=== PATIENT | male | born 1930 | race Caucasian/White ===

== ENCOUNTER 2019-10-13 05:31 | Inpatient (IN) | payer MEDICARE, OTHER ==
[2019-10-06 15:06] LABS: EOSINOPHILS # (AUTO) 0.1 X10'3 (0-0.9); LYMPHOCYTES # (AUTO) 0.7 X10'3 (1.1-4.8); MONOCYTES # (AUTO) 0.3 X10'3 (0-0.9)
[2019-10-06 15:07] LABS: BASOPHILS % (AUTO) 0.4 % (0-1); EOSINOPHILS % (AUTO) 2.6 % (0-6); LYMPHOCYTES % (AUTO) 17.4 % (21-51); MEAN CORPUSCULAR HEMOGLOBIN 28.4 PG (27.0-31.0); MEAN CORPUSCULAR HGB CONC 32.4 g/dL (33.0-36.5); MEAN CORPUSCULAR VOLUME 87.8 FL (78-98); MEAN PLATELET VOLUME 7.2 FL (7.4-10.4); MONOCYTES % (AUTO) 7.6 % (2-12); PRE OP HEMATOCRIT 33.2 % (42.0-52.0); PRE OP PLATELET COUNT 269 X10'3 (140-440); RED BLOOD COUNT 3.78 X10'6 (4.70-6.10); RED CELL DISTRIBUTION WIDTH 16.9 % (11.5-14.5)
[2019-10-06 15:10] LABS: PRE OP HEMOGLOBIN 10.7 g/dL (14.0-17.9)
[2019-10-06 15:17] LABS: ALBUMIN 3.6 G/DL (3.4-5.0); ALBUMIN/GLOBULIN RATIO 0.9 (1.1-1.5); ALKALINE PHOSPHATASE 91 IU/L (46-116); BLOOD UREA NITROGEN 32 MG/DL (7-18); BUN/CREATININE RATIO 13.1 (5.4-32.0); CALCIUM 8.8 MG/DL (8.5-10.1); CHLORIDE 106 MMOL/L (99-107); CREATININE 2.45 MG/DL (0.60-1.10); PRE OP ALT 17 U/L (30-65); PRE OP ANION GAP 7 (8-16); PRE OP AST 20 U/L (10-37); PRE OP BILIRUB, TOTAL 0.6 MG/DL (0.0-1.0); PRE OP GLUCOSE 107 MG/DL (70-104); PRE OP INR 1.1 INR; PRE OP POTASSIUM 3.7 MMOL/L (3.4-5.1); PRE OP SODIUM 141 MMOL/L (135-145); TOTAL CARBON DIOXIDE 28.2 MMOL/L (24-32); TOTAL PROTEIN 7.4 G/DL (6.4-8.2); eGFR 25 ML/MIN
[2019-10-13] VITALS (21 sets, daily range): BP systolic 116–136; BP diastolic 49–75
[~2019-10-13] VITALS: Ht 177.8 cm; Wt 80.0 kg
[~2019-10-13 05:31] MED LIST: AMLO2.5T2 PO; APIX2.5T PO; DOCUMENT DATE & TIME OF BETA-BLOCKER PO ONE; FURO-150 PO; HYDR-4069 PO; METO50TA17 PO; OLME5TAB3 PO; OMEP20TA5 PO; ceFOXitin sod/dextrose 2g/50ml 50 ML IV ONE; famotidine 20mg tablet PO ONE; ringers solution, lacted 1,000 ML IV SCH
[2019-10-13] MEDS ORDERED: LIDOcaine 1% 30ml preserv. free vial ONE (06:38)
[2019-10-13] MEDS ORDERED: BUPIVAcaine/PF 2.5 mg/ml (0.25%) 30ml vial ONE (06:38)
[2019-10-13] MEDS ORDERED: LIDOcaine 1% (10mg/ml) 2ml vial ONE (07:09)
[2019-10-13] MEDS ORDERED: fentaNYL /PF 50mcg/ml 5ml ampule ONE (07:17)
[2019-10-13] MEDS ORDERED: sevoflurane 250ml liquid IH ONE (07:32)
[2019-10-13] MEDS ORDERED: rocuronium 10mg/ml inj IV ONE (09:48)
[2019-10-13] MEDS ORDERED: ondansetron/PF 4mg/2ml inj ONE (09:48)
[2019-10-13] MEDS ORDERED: pancuronium br 1mg/ml inj IV ONE (09:48)
[2019-10-13] MEDS ORDERED: dexamethasone sod phosphate 4mg/ml inj. ONE (09:48)
[2019-10-13] MEDS ORDERED: furosemide 40mg/4ml inj ONE (09:48)
[2019-10-13] MEDS ORDERED: ePHEDrine 50MG/ML INJ. ONE (09:48)
[2019-10-13] MEDS ORDERED: propofol inj 20 ML IV ONE (09:48)
[2019-10-13] MEDS ORDERED: neostigmine methylsulfate 1 MG/ML 10ml vial ONE (09:48)
[2019-10-13] MEDS ORDERED: LIDOcaine 2% (20mg/ml) 5ml vial ONE (09:48)
[2019-10-13] MEDS ORDERED: glycopyrrolate 0.2mg/ml inj ONE ×2 (09:48→10:13)
--- NOTE | 2019-10-13 10:47 | NUR ---
Received from OR via surgical bed, accompanied by Anesthesiologist Shira and report given by Anesthesiolgist. All VS stable, mask to 10L and sats 99%. Art line to right wrist no hematoma present, zeroed and waveform acceptable. Left hand has 20G SL, 18G to left forearm present with LR at 100cc/hr. Pt opens eyes in response to questions but no verbal response, moves all extremeties. Abdomen lap sites covered CDI and small island dressing covering 3-4inch incision per RN and MD. ZAINA present to suction with minimal serosang drainage present. Murray catheter draining yellow urine and SCDs on.
[2019-10-13] MEDS ORDERED: ringers solution, lacted 1,000 ML IV SCH (10:56)
[2019-10-13] MEDS ORDERED: morphine 2 MG/ML inj. syringe IV PRN (11:00)
[2019-10-13] MEDS ORDERED: HYDROmorphone inj. 0.5 MG/0.5 ML DISP.SYRIN IV PRN ×2 (11:00)
[2019-10-13] MEDS ORDERED: ondansetron/PF 4mg/2ml inj IV PRN ×2 (11:00)
--- NOTE | 2019-10-13 11:05 | NUR ---
Blood sugar checked per MD request, 127, reported.
--- NOTE | 2019-10-13 11:30 | NUR ---
ASSUMED CARE OF PT FROM RN, RADIAL ART LINE D/CD, CANNULA INTACT. Addendum: 10/13/19 at 1247 by Lourdes Whitehead RN Amended: Links added.
--- NOTE | 2019-10-13 12:37 | NUR ---
PT REMAINS DROWSY BUT ANSWERS QUESTIONS APPROPRIATELY, DENIES PAIN,Report called to receiving nurse. Transferred via BED, 1 BAG OF PERSONAL Belongings SENT W/PT TO ROOM 347A, RECEIVING RN AT BEDSIDE TO RECEIVE PT, BLL, CALL LIGHT GIVEN, SIDE RAILS UP X 2. Special Issues communicated to receiving nurse. YES. Addendum: 10/13/19 at 1243 by Lourdes Whitehead RN Amended: Links added.
--- NOTE | 2019-10-13 12:52 | NUR ---
1158 Report from car seat upholsterer Jane. [id number] Pt recived in room on a bed. Pt sleeping. pt assessed. abdominal dressings CDI, PIV patent, o2 at 2l.
[2019-10-13] MEDS: Potassium Cl inj 20 MEQ in ringers solution, lacted 1,000 ML IV SCH (14:00)
[2019-10-13] MEDS: acetaminophen 1,000mg/100ml IV 100 ML IV SCH ×2 (14:57→20:08)
[2019-10-13] MEDS: HYDROmorphone inj. 0.5 MG/0.5 ML DISP.SYRIN IV PRN (15:52)
[2019-10-13] MEDS: ceFAZolin inj. 1,000 MG in dextrose 5%-water 50ml 50 ML IV SCH (16:14)
[2019-10-13] MEDS: hyDRALAzine 10mg tablet PO SCH (16:14)
--- NOTE | 2019-10-13 18:21 | NUR ---
Problems reprioritized. Patient report given, questions answered & plan of care reviewed with Prudence RN.
--- NOTE | 2019-10-13 18:21 | NUR ---
Problems reprioritized. Patient report given, questions answered & plan of care reviewed with Prudence RN.
--- NOTE | 2019-10-13 18:38 | NUR ---
Patient in room [place] 347. I have received report from JAMES LANGFORD and had the opportunity to ask questions and assume patient care. Patient is awake in bed and denies having pain.
[2019-10-13] MEDS: metoprolol tartrate 25mg tablet PO SCH (20:12)
[2019-10-13] MEDS: amLODIPine 5mg tablet PO SCH (22:11)
[2019-10-14] MEDS: Potassium Cl inj 20 MEQ in ringers solution, lacted 1,000 ML IV SCH ×2 (00:26→04:50)
[2019-10-14] MEDS: hyDRALAzine 10mg tablet PO SCH ×4 (00:35→23:39)
[2019-10-14 00:45] VITALS: BP 127/60
[2019-10-14] MEDS: ceFAZolin inj. 1,000 MG in dextrose 5%-water 50ml 50 ML IV SCH ×2 (01:02→08:12)
[2019-10-14] MEDS: acetaminophen 1,000mg/100ml IV 100 ML IV SCH ×2 (02:44→07:33)
--- NOTE | 2019-10-14 03:01 | NUR ---
Patient received acetaminophen IV twice on exercise scientist in the total of 2000mg. Pharmacy consulted on the warning that was coming on the patient's screen that he has exceeded 8000mg in 24 hours. According to the dosage on EMAR, patient has only receive 3000mg since admission.
[2019-10-14 04:32] VITALS: BP 123/56
[2019-10-14 05:48] LABS: BASOPHILS % (AUTO) 0 % (0-1); EOSINOPHILS % (AUTO) 0 % (0-6); HEMATOCRIT 30.2 % (42.0-52.0); HEMOGLOBIN 10.2 g/dl (14.0-17.9); LYMPHOCYTES # (AUTO) 0.6 X10'3 (1.1-4.8); LYMPHOCYTES % (AUTO) 9.3 % (21-51); MEAN CORPUSCULAR HEMOGLOBIN 29.8 PG (27.0-31.0); MEAN CORPUSCULAR HGB CONC 33.6 g/dL (33.0-36.5); MEAN CORPUSCULAR VOLUME 88.6 FL (78-98); MEAN PLATELET VOLUME 7.6 FL (7.4-10.4); MONOCYTES # (AUTO) 0.5 X10'3 (0-0.9); MONOCYTES % (AUTO) 7.6 % (2-12); NEUTROPHILS # (AUTO) 5.4 X10'3 (1.8-7.7); NEUTROPHILS % (AUTO) 83.1 % (42-75); PLATELET COUNT 197 X10'3 (140-440); RED BLOOD COUNT 3.41 X10'6 (4.70-6.10); RED CELL DISTRIBUTION WIDTH 16.7 % (11.5-14.5); WHITE BLOOD COUNT 6.5 X10'3 (4.5-11.0)
[2019-10-14 05:53] LABS: ALBUMIN 2.5 G/DL (3.4-5.0); ANION GAP 4 (8-16); BLOOD UREA NITROGEN 30 MG/DL (7-18); BUN/CREATININE RATIO 12.4 (5.4-32.0); CALCIUM 8.4 MG/DL (8.5-10.1); CHLORIDE 109 MMOL/L (99-107); CREATININE 2.42 MG/DL (0.60-1.10); GLUCOSE 109 MG/DL (70-104); POTASSIUM 5.3 MMOL/L (3.5-5.1); SODIUM 141 MMOL/L (135-145); TOTAL CARBON DIOXIDE 27.6 MMOL/L (24-32); eGFR 25 ML/MIN
--- NOTE | 2019-10-14 06:24 | NUR ---
Problems reprioritized. Patient report given, questions answered & plan of care reviewed with MYRA LANGFORD.
--- NOTE | 2019-10-14 06:38 | NUR ---
Patient in room [place] 347. I have received report from ANASTASIYA STAPLETON and had the opportunity to ask questions and assume patient care.
[2019-10-14 07:04] VITALS: BP 126/78
[2019-10-14] MEDS: furosemide 20MG tablet PO SCH (07:25)
[2019-10-14] MEDS: pantoprazole 40mg Tablet.DR PO SCH (07:25)
[2019-10-14] MEDS: metoprolol tartrate 25mg tablet PO SCH ×2 (07:25→19:23)
[2019-10-14] MEDS: losartan 50mg tablet PO SCH (07:25)
[2019-10-14] MEDS ORDERED: normal saline 1000ml 1,000 ML IV SCH (08:10)
--- NOTE | 2019-10-14 08:23 | NUR ---
DR SALDAÑA IN TO SEE PATIENT.
[2019-10-14] MEDS ORDERED: diatrozoate meglu/diatrozoate sod (37% iodine) 120ML oral solution ONE (09:00)
--- NOTE | 2019-10-14 09:30 | NUR ---
PATIENT DOWN TO RADIOLOGY.
[2019-10-14] MEDS: HYDROmorphone inj. 0.5 MG/0.5 ML DISP.SYRIN IV PRN ×2 (10:04→23:43)
--- NOTE | 2019-10-14 10:08 | NUR ---
PATIENT BACK TO ROOM 347A. C/O 9/ PAIN TO LEFT LATERAL ABD. PAIN MED ADMINISTERED ORDERED. WILL CONTINUE TO MONITOR.
[2019-10-14 11:00] VITALS: BP 118/57
--- NOTE | 2019-10-14 17:45 | NUR ---
Bladder scanned patient per primary RN request. Bladder scan showed 90 mL. Set patient up for dinner, reported bladder scan info to Rn Shantel.
[2019-10-14 18:00] VITALS: BP 143/67
--- NOTE | 2019-10-14 18:29 | NUR ---
Problems reprioritized. Patient report given, questions answered & plan of care reviewed with ANASTASIYA Valdes.
--- NOTE | 2019-10-14 18:31 | NUR ---
Unable to measure patient's void after sanchez catheter removal as patient reports he had a BM and voided at same time. Bladder scan for post void residual and bladder scan shows 90ml. Patient denies any pain or discomfort in bladder.
--- NOTE | 2019-10-14 18:32 | NUR ---
Patient in room [place] 347. I have received report from ANASTASIYA Funes and had the opportunity to ask questions and assume patient care.
[2019-10-14] MEDS: amLODIPine 5mg tablet PO SCH (20:38)
--- NOTE | 2019-10-14 20:41 | NUR ---
Automatic blood pressure performed, 146/65, right arm. Upon medication administration for Amlodipine 10 mg, 1 out of 2 tablets dropped on to the floor. Informed pt that I would get another tablet. Pt refused. Will continue to monitor patient blood pressure
[2019-10-15] VITALS: BP 155/73
[2019-10-15 04:57] LABS: ALBUMIN 2.7 G/DL (3.4-5.0); ANION GAP 5 (8-16); BASOPHILS % (AUTO) 0.1 % (0-1); BLOOD UREA NITROGEN 28 MG/DL (7-18); BUN/CREATININE RATIO 13.4 (5.4-32.0); CALCIUM 8.1 MG/DL (8.5-10.1); CHLORIDE 108 MMOL/L (99-107); CREATININE 2.09 MG/DL (0.60-1.10); EOSINOPHILS % (AUTO) 0.3 % (0-6); GLUCOSE 94 MG/DL (70-104); HEMOGLOBIN 10.7 g/dl (14.0-17.9); LYMPHOCYTES # (AUTO) 0.8 X10'3 (1.1-4.8); MEAN CORPUSCULAR HEMOGLOBIN 28.5 PG (27.0-31.0); MEAN CORPUSCULAR HGB CONC 32.4 g/dL (33.0-36.5); MEAN CORPUSCULAR VOLUME 87.8 FL (78-98); MEAN PLATELET VOLUME 7.4 FL (7.4-10.4); MONOCYTES # (AUTO) 0.4 X10'3 (0-0.9); NEUTROPHILS # (AUTO) 5.1 X10'3 (1.8-7.7); NEUTROPHILS % (AUTO) 81.6 % (42-75); PLATELET COUNT 214 X10'3 (140-440); POTASSIUM 4.2 MMOL/L (3.5-5.1); RED BLOOD COUNT 3.75 X10'6 (4.70-6.10); SODIUM 141 MMOL/L (135-145); TOTAL CARBON DIOXIDE 27.7 MMOL/L (24-32); WHITE BLOOD COUNT 6.2 X10'3 (4.5-11.0); eGFR 30 ML/MIN
--- NOTE | 2019-10-15 06:28 | NUR ---
Problems reprioritized. Patient report given, questions answered & plan of care reviewed with ANASTASIYA Cortes.
--- NOTE | 2019-10-15 06:35 | NUR ---
Patient in room [place] 347. I have received report from Keisha LANGFORD and had the opportunity to ask questions and assume patient care.
[2019-10-15 08:00] VITALS: BP 148/75
[2019-10-15] MEDS: hyDRALAzine 10mg tablet PO SCH ×2 (08:00→16:52)
[2019-10-15] MEDS: furosemide 20MG tablet PO SCH (08:14)
[2019-10-15] MEDS: losartan 50mg tablet PO SCH (08:15)
[2019-10-15] MEDS: pantoprazole 40mg Tablet.DR PO SCH (08:15)
[2019-10-15] MEDS: metoprolol tartrate 25mg tablet PO SCH ×2 (08:15→20:24)
--- NOTE | 2019-10-15 10:47 | NUR ---
Patient up with walker and one person standby, walked approx. 700ft, patient seemed stable on his feet, no difficulty.
--- NOTE | 2019-10-15 10:49 | NUR ---
Patient states that he had a small bowel movement this morning around 1030. Patient states it was loose and green/brown in color.
[2019-10-15 11:00] VITALS: BP 138/73
--- NOTE | 2019-10-15 11:30 | NUR ---
Dr Baron rounded for Dr Ayoub, Dr Snider ordered DC ZAINA drain. Dr aware of the amount of fluids draining from ZAINA. Pt has 60 ml serosanguineous fluids from [id number]. last night 50ml and yesterday day shift reported 210mls. Dr Baron stated that the amount did not matter and it needed to be DC. also ordered MOM BID and dressing change PRN. Pt will be DC tomorrow.
[2019-10-15 18:15] VITALS: BP 161/75
--- NOTE | 2019-10-15 18:28 | NUR ---
Problems reprioritized. Patient report given, questions answered & plan of care reviewed with Keisha LANGFORD.
--- NOTE | 2019-10-15 18:29 | NUR ---
Patient in room [place] 347. I have received report from ANASTASIYA Cortes and had the opportunity to ask questions and assume patient care.
[2019-10-15] MEDS: heparin, porcine 5000 units/ml vial SQ SCH (20:23)
[2019-10-15] MEDS: magnesium hydroxide 30ml (MOM) UD suspension PO SCH (20:24)
[2019-10-15] MEDS: amLODIPine 5mg tablet PO SCH (21:53)
[2019-10-16 00:29] VITALS: BP 143/74
[2019-10-16] MEDS: hyDRALAzine 10mg tablet PO SCH ×2 (00:43→08:40)
[2019-10-16 05:13] LABS: BASOPHILS % (AUTO) 0.3 % (0-1); EOSINOPHILS # (AUTO) 0.1 X10'3 (0-0.9); EOSINOPHILS % (AUTO) 1.3 % (0-6); HEMOGLOBIN 10.9 g/dl (14.0-17.9); LYMPHOCYTES # (AUTO) 1.2 X10'3 (1.1-4.8); LYMPHOCYTES % (AUTO) 22.1 % (21-51); MEAN CORPUSCULAR HEMOGLOBIN 29.2 PG (27.0-31.0); MEAN CORPUSCULAR VOLUME 88.5 FL (78-98); MEAN PLATELET VOLUME 7.7 FL (7.4-10.4); MONOCYTES # (AUTO) 0.4 X10'3 (0-0.9); NEUTROPHILS # (AUTO) 3.6 X10'3 (1.8-7.7); NEUTROPHILS % (AUTO) 68.3 % (42-75); PLATELET COUNT 220 X10'3 (140-440); RED BLOOD COUNT 3.73 X10'6 (4.70-6.10); RED CELL DISTRIBUTION WIDTH 16.9 % (11.5-14.5); WHITE BLOOD COUNT 5.3 X10'3 (4.5-11.0)
[2019-10-16 05:32] LABS: ALBUMIN 2.7 G/DL (3.4-5.0); ANION GAP 8 (8-16); BLOOD UREA NITROGEN 21 MG/DL (7-18); BUN/CREATININE RATIO 11.4 (5.4-32.0); CALCIUM 8.3 MG/DL (8.5-10.1); CHLORIDE 106 MMOL/L (99-107); CREATININE 1.85 MG/DL (0.60-1.10); GLUCOSE 85 MG/DL (70-104); POTASSIUM 3.7 MMOL/L (3.5-5.1); SODIUM 143 MMOL/L (135-145); TOTAL CARBON DIOXIDE 29.4 MMOL/L (24-32); eGFR 35 ML/MIN
--- NOTE | 2019-10-16 06:18 | NUR ---
Problems reprioritized. Patient report given, questions answered & plan of care reviewed with ANASTASIYA Cortes.
--- NOTE | 2019-10-16 06:43 | NUR ---
Patient in room [place] 347. I have received report from Keisha Nicholson and had the opportunity to ask questions and assume patient care.
[2019-10-16 07:50] VITALS: BP 142/69
[2019-10-16] MEDS: heparin, porcine 5000 units/ml vial SQ SCH (08:00)
[2019-10-16] MEDS: losartan 50mg tablet PO SCH (08:00)
[2019-10-16] MEDS: metoprolol tartrate 25mg tablet PO SCH (08:00)
[2019-10-16] MEDS: magnesium hydroxide 30ml (MOM) UD suspension PO SCH (08:00)
[2019-10-16] MEDS: furosemide 20MG tablet PO SCH (08:40)
[2019-10-16] MEDS: pantoprazole 40mg Tablet.DR PO SCH (08:40)
--- NOTE | 2019-10-16 09:34 | NUR ---
PAGER ID: [phone] MESSAGE: Gonzalez Aragonight [id number]- Good morning, pt has a rash through out his body that is pretty itchy. Can we get him Benadryl? please. Thank you. Sophia [phone]
[2019-10-16 11:00] VITALS: BP 145/75
== END 2019-10-16 14:36 | disposition home or self-care (01) | DRG 337 ==
LOC: PAS IN 05:31 → UNDOADMIN 05:31 → EDSTATUS 07:30 → PAS IN 10:58 → SUR 3N 12:45 → PAS IN 12:45
PROVIDERS: ADMIT Surgery; ATTEND Surgery
PROC: 8E0W4CZ Robotic Assisted Procedure of Trunk Region, Percutaneous Endoscopic Approach (ICD-10-PCS; 2019-10-13)
PROC: 0DNU4ZZ Release Omentum, Percutaneous Endoscopic Approach (ICD-10-PCS; 2019-10-13)
PROC: 0DN84ZZ Release Small Intestine, Percutaneous Endoscopic Approach (ICD-10-PCS; 2019-10-13)
PROC: 0DB64ZZ Excision of Stomach, Percutaneous Endoscopic Approach (ICD-10-PCS; principal; 2019-10-13 07:32)
PROC: BD11YZZ Fluoroscopy of Esophagus using Other Contrast (ICD-10-PCS; 2019-10-14)
DX: D49.0 Neoplasm of unspecified behavior of digestive system (principal); K66.0 Peritoneal adhesions (postprocedural) (postinfection); I12.9 Hypertensive chronic kidney disease with stage 1 through stage 4 chronic kidney disease, or unspecified chronic kidney disease; N18.9 Chronic kidney disease, unspecified; I48.91 Unspecified atrial fibrillation; N40.0 Benign prostatic hyperplasia without lower urinary tract symptoms; Z88.5 Allergy status to narcotic agent; Z83.3 Family history of diabetes mellitus; Z82.49 Family history of ischemic heart disease and other diseases of the circulatory system
CPT/HCPCS: 36415; 74220; 80048; 80053; 82948; 85025; 85610; 85730; 86885; 86900; 86901; 86920; 87081; 88309; 94668; A4215; A4618; A6449; C1758; G0378; J0131; J0690; J0694; J1100; J1170; J1644; J1940; J2001; J2405; J2704; J2710; J3010; J3480; J3490; J7030; J7040; J7060; J7120; Q9963